=== PATIENT | female | born 1950 | race Caucasian/White ===

== ENCOUNTER 2020-06-02 13:30 | Observation (INO) | payer MEDICARE, SELFPAY ==
[2020-06-02] VITALS (13 sets, daily range): BP systolic 120–144; BP diastolic 59–98; PULSE 96–129; RESP 18–31; TEMP 36.3–36.9; O2SAT 95–97; BMI 39.8
--- NOTE | 2020-06-02 13:40 | DI.RAD.S_ITS ---
PROCEDURE: XR CHEST 1V INDICATIONS: SOb TECHNIQUE: One view of the chest was acquired. COMPARISON: None. FINDINGS: Surgical changes and devices: None. Lungs and pleura: Chronic emphysematous changes are noted with increased interstitial thickening more prominent on the right side. Linear scarring/atelectasis in right mid lung field is seen. No focal infiltrate. No pleural effusions or pneumothorax. Mediastinum: Mediastinal contours appear normal. Heart size is mildly enlarged. Bones and chest wall: No suspicious bony lesions. Overlying soft tissues appear unremarkable. IMPRESSION: Suggestion of chronic interstitial lung disease. No focal infiltrate, pleural effusion or pneumothorax. Dictated by: Stuart Duarte M.D. on 06/02/2020 at 13:57 Approved by: Stuart Duarte M.D. on 06/02/2020 at 13:58
[2020-06-02 13:53] LABS: Add Manual Diff / Slide Review NO; Basophils Absolute Auto 100 /uL (0-100); Basophils Percent Auto 0.7 % (0-2); Eosinophils Absolute Auto 200 /uL (0-450); Hematocrit 39.6 % (36-46); Hemoglobin 13.2 g/dL (12.0-16.0); Lymphocytes Absolute Auto 2000 /uL (1100-4500); Lymphocytes Percent Auto 23.5 % (25-40); Mean Corpuscular HGB Conc 33.2 % (30-36); Mean Corpuscular Hemoglobin 28.6 PG (26-34); Mean Corpuscular Volume 86.2 fL (80-100); Monocytes Absolute Auto 700 /uL (0-900); Monocytes Percent Auto 8.4 % (3-14); Neutrophils Absolute Auto 5700 /uL (1500-7000); Neutrophils Percent Auto 65.4 % (50-75); Platelet Count 232 X10^3/uL (150-400); Red Cell Distribution Width 14.6 % (11.6-14.8); White Blood Cell Count 8.7 X10^3/uL (4.5-11.0)
[2020-06-02 14:01] LABS: Prothrombin Time 11.2 SECONDS (10.1-12.7)
[2020-06-02 14:04] LABS: PTT Partial Thromboplastin Tim 31 SECONDS (26.4-36.2)
[2020-06-02 14:07] LABS: Alanine Aminotransferase 17 IU/L (<35); Albumin 4.1 g/dL (3.5-5.0); Albumin Globulin Ratio 1.4 (1.0-2.8); Alkaline Phosphatase 85 U/L (38-126); Aspartate Aminotransferase 24 IU/L (14-36); BUN Creatinine Ratio 19.5 (6-22); Bilirubin Total 0.8 mg/dL (0.2-1.3); Blood Urea Nitrogen 15 mg/dL (7-17); Carbon Dioxide 24 mmol/L (22-32); Chloride 107 mmol/L (98-107); Creatine Kinase 75 U/L (30-135); Estimated Glomerular Filt Rate > 60.0 mL/min (>60); Globulin 2.9 g/dL (1.7-4.1); Glucose 110 mg/dL (80-110); HEMOLYSIS < 15 (0-50); Lipase 85 U/L (23-300); Potassium 3.8 mmol/L (3.4-5.1); Sodium 138 mmol/L (137-145)
--- NOTE | 2020-06-02 14:09 | ED.GENADULT ---
HPI - General Adult General Chief complaint: Shortness of Breath/Dyspnea Stated complaint: allergies/eye symptoms/asthma x1 year Time Seen by Provider: 06/02/20 13:37 Source: patient Mode of arrival: Ambulatory Limitations: no limitations History of Present Illness HPI narrative: Patient is a 70-year-old female who was sent over from the walk-in clinic for evaluation of her presenting symptoms. Initially see stated that she went to the walk-in clinic for evaluation of crusting around her eyes that she is been having for the past year. While she was there she informed the staff that she was also waking up at night with shortness of breath and chest discomfort. According to their note she stated that has been worsening over the past couple days but according to the patient she states things started to get worse over the past month and has been worsening since then. She does have a diagnosis of asthma. She does use her inhalers at night which seems to help her symptoms however takes about an hour to recover from these events and then she goes back to sleep. She has also noticed a decrease in exercise tolerance. She does have lower extremity swelling. The lower extremity swelling is not necessarily new but it has been worsening over the past month. She is on Lasix which she states she takes on a daily basis and has been on this for the past 20 years. She has a history of high blood pressure. She is currently not having any chest pain. Related Data Home Medications Medication Instructions Recorded Confirmed Calcium/Vitamin D (#CITRACAL + D 1 tab PO #0 05/05/11 315 MG-200 IU) Conjugated Estrogens (PREMARIN) 1.25 mg PO QDAY #0 05/05/11 LORATADINE/P-EPHED 5/120 - 1 tab PO #0 05/05/11 (#CLARITIN-D) LOVASTATIN (MEVACOR) 20 mg PO QDAYPM #0 05/05/11 Loratadine (#CLARITIN HIVES RELIEF) 10 mg PO #0 05/05/11 Ranitidine Hydrochloride 150 mg PO QDAY #0 05/05/11 (RANITIDINE) VITAMIN A (#VITAMIN A NATURAL) 8,000 iu PO #0 05/05/11 VITAMIN D (Vitamin D3) 1,000 unit PO QDAY #0 05/05/11 ascorbic acid (vitamin C) 1,000 mg PO BID #0 05/05/11 furosemide 20 mg PO BIDD #0 05/05/11 ipratropium bromide [Atrovent HFA] #0 05/05/11 lisinopril 20 mg PO BID #0 05/05/11 lysine [L-Lysine] 500 mg PO #0 05/05/11 Allergies Allergy/AdvReac Type Severity Reaction Status Date / Time CODEINE Allergy Unknown Uncoded 06/27/17 12:15 ERYTHROMYCIN Allergy Unknown Uncoded 06/27/17 12:15 From VALIUM Allergy Unknown Uncoded 06/27/17 12:15 IODINE Allergy Unknown Uncoded 06/27/17 12:15 PENICILLIN Allergy Unknown Uncoded 06/27/17 12:15 SULFA Allergy Unknown Uncoded 06/27/17 12:15 UNKNOWN PAIN MED Allergy Unknown Uncoded 06/27/17 12:15 Review of Systems Constitutional Constitutional: Denies chills, Denies fever(s) and Denies headache(s) Eyes Comments: Crusting of eyes ENT Ears, Nose, Mouth, and Throat: Denies vertigo, Denies dizziness, Denies headache(s), Denies sinus pressure and Denies sore throat Cardiovascular Cardiovascular: Reports chest pain, Denies rapid heart rate, Denies irregular heart rhythm, Reports dyspnea, Reports dyspnea on exertion and Reports orthopnea Respiratory Respiratory: Denies cough, Reports dyspnea and Reports dyspnea on exertion Gastrointestinal Gastrointestinal: Denies abdominal pain, Denies nausea and Denies vomiting Genitourinary Genitourinary: Denies dysuria Genitourinary: Denies dysuria Musculoskeletal Musculoskeletal: Denies arthralgias and Denies myalgias Integumentary/Breasts Skin/Breast: Denies rash Neurologic Neurologic: Denies behavioral changes, Denies vertigo, Denies dizziness and Denies headache(s) Psychiatric Psychiatric: Denies behavioral changes Hematologic/Lymphatic On Anticoagulants: No Allergic/Immunologic Allergic/Immunologic: Denies urticaria Patient History Medical History Asthma Hypertension Lower extremity edema Social History marital status: lives independently: Yes Exam Initial Vital Signs Initial Vital Signs: Vital Signs Temperature 97.9 F 06/02/20 13:39 Pulse Rate 129 H 06/02/20 13:39 Respiratory Rate 24 06/02/20 13:39 Blood Pressure 141/73 H 06/02/20 13:39 Pulse Oximetry 96 06/02/20 13:39 Const General: cooperative, comfortable, well developed and well groomed Limitations: mental status not altered HENMD Head: normal to inspection and normocephalic Eyes General: appearance normal, both eyes and all related structures Resp Effort & Inspection: normal respiratory effort Auscultation: clear to auscultation bilaterally Cardio Rate: tachycardic Rhythm: abnormal rhythm GI Inspection: non-distended Palpation: soft Skin Lesions: no lesions Rashes: no rashes Neuro General: patient alert, patient awake and patient oriented x3 Cognition: normal cognition Speech: speech normal Gait: normal gait Extrem General: capillary refill normal and edema Psych Appearance: grossly normal and well kempt Scores GCS [place] coma scale eye opening: Spontaneous [place] coma scale verbal response: Orientated [place] coma scale motor response: Obey commands [place] coma scale total score: 15 Course Orders Ordered: ED Orders 06/02/20 13:40 XR chest 1V Stat 06/02/20 13:43 COVID19 -Nasal swab/Pre-Proc Stat Complete Blood Count AUTO DIFF Stat Comprehensive Metabolic Panel Stat Lipase Stat NT-proBNP (BNP-Adult 18+) Stat Partial Thromboplastin Time Stat Prothrombin Time INR Stat Troponin & CK Cardiac Panel Stat 06/02/20 13:49 EKG-12 Lead Stat Discontinued Medications Furosemide (Furosemide 100 Mg/10 Ml Vial) 60 mg IV NOW ONE Stop: 06/02/20 14:22 Metoprolol Succinate (Metoprolol Er 25 Mg Tablet) 25 mg PO NOW ONE Stop: 06/02/20 14:29 Vital Signs Vital signs: Vital Signs - 8 hr 06/02/20 13:39 06/02/20 14:13 Temperature 97.9 F Pulse Rate 129 H 97 H Respiratory Rate 24 Blood Pressure 141/73 H 135/59 L Pulse Oximetry 96 95 Medical Decision Making Lab Data Result diagrams: 06/02/20 13:43 06/02/20 13:43 Labs: Lab Results 06/02/20 06/02/20 06/02/20 Range/Units 13:43 13:43 13:43 WBC 8.7 (4.5-11.0) X10^3/uL RBC 4.60 (4.0-5.2) X10^6/uL Hgb 13.2 (12.0-16.0) g/dL Hct 39.6 (36-46) % MCV 86.2 (80-100) fL MCH 28.6 (26-34) PG MCHC 33.2 (30-36) % RDW 14.6 (11.6-14.8) % Plt Count 232 (150-400) X10^3/uL Neut % (Auto) 65.4 (50-75) % Lymph % (Auto) 23.5 L (25-40) % [place] % (Auto) 8.4 (3-14) % Eos % (Auto) 2.0 (2-4) % Baso % (Auto) 0.7 (0-2) % Neut # (Auto) 5700 (0753-0734) /uL Lymph # (Auto) 2000 (7457-1757) /uL [place] # (Auto) 700 (0-900) /uL Eos # (Auto) 200 (0-450) /uL Baso # (Auto) 100 (0-100) /uL PT 11.2 (10.1-12.7) SECONDS INR 1.0 (0.9-1.3) APTT 31 (26.4-36.2) SECONDS Sodium 138 (137-145) mmol/L Potassium 3.8 (3.4-5.1) mmol/L Chloride 107 (98-107) mmol/L Carbon Dioxide 24 (22-32) mmol/L BUN 15 (7-17) mg/dL Creatinine 0.77 (0.52-1.04) mg/dL Estimated GFR > 60.0 (>60) mL/min BUN/Creatinine Ratio 19.5 (6-22) Glucose 110 (80-110) mg/dL Calcium 9.0 (8.4-10.2) mg/dL Total Bilirubin 0.8 (0.2-1.3) mg/dL AST 24 (14-36) IU/L ALT 17 (<35) IU/L Alkaline Phosphatase 85 (38-126) U/L Total Creatine Kinase (30-135) U/L CK-MB (CK-2) CK-MB (CK-2) Rel Index Troponin I (0.01-0.034) ng/mL NT-Pro-B Natriuret Pep 850 H (<125) pg/mL Total Protein 7.0 (6.3-8.2) g/dL Albumin 4.1 (3.5-5.0) g/dL Globulin 2.9 (1.7-4.1) g/dL Albumin/Globulin Ratio 1.4 (1.0-2.8) Lipase 85 (23-300) U/L SARS-CoV-2 (PCR) (Negative) 06/02/20 06/02/20 Range/Units 13:43 13:43 WBC (4.5-11.0) X10^3/uL RBC (4.0-5.2) X10^6/uL Hgb (12.0-16.0) g/dL Hct (36-46) % MCV (80-100) fL MCH (26-34) PG MCHC (30-36) % RDW (11.6-14.8) % Plt Count (150-400) X10^3/uL Neut % (Auto) (50-75) % Lymph % (Auto) (25-40) % [place] % (Auto) (3-14) % Eos % (Auto) (2-4) % Baso % (Auto) (0-2) % Neut # (Auto) (6936-4173) /uL Lymph # (Auto) (2134-7215) /uL [place] # (Auto) (0-900) /uL Eos # (Auto) (0-450) /uL Baso # (Auto) (0-100) /uL PT (10.1-12.7) SECONDS INR (0.9-1.3) APTT (26.4-36.2) SECONDS Sodium (137-145) mmol/L Potassium (3.4-5.1) mmol/L Chloride (98-107) mmol/L Carbon Dioxide (22-32) mmol/L BUN (7-17) mg/dL Creatinine (0.52-1.04) mg/dL Estimated GFR (>60) mL/min BUN/Creatinine Ratio (6-22) Glucose (80-110) mg/dL Calcium (8.4-10.2) mg/dL Total Bilirubin (0.2-1.3) mg/dL AST (14-36) IU/L ALT (<35) IU/L Alkaline Phosphatase (38-126) U/L Total Creatine Kinase 75 (30-135) U/L CK-MB (CK-2) TNP CK-MB (CK-2) Rel Index TNP Troponin I < 0.012 (0.01-0.034) ng/mL NT-Pro-B Natriuret Pep (<125) pg/mL Total Protein (6.3-8.2) g/dL Albumin (3.5-5.0) g/dL Globulin (1.7-4.1) g/dL Albumin/Globulin Ratio (1.0-2.8) Lipase (23-300) U/L SARS-CoV-2 (PCR) Negative (Negative) Imaging Data Chest x-ray: Radiologist's Impression: [address] [id number] ReportSigned Patient: Lilia Barreto FMR#: [id number]: 9Acct:[id number]/Sex: 70 / FDate of Service: 06/02/20Loc: EDAccession Number: [id number] Procedure: XR chest 1V Ordering Provider: Matt Gilliland D.O. PROCEDURE: XR CHEST 1V INDICATIONS: SOb TECHNIQUE: One view of the chest was acquired. COMPARISON: None. FINDINGS: Surgical changes and devices: None. Lungs and pleura: Chronic emphysematous changes are noted with increased interstitial thickening more prominent on the right side. Linear scarring/atelectasis in right mid lung field is seen. No focal infiltrate. No pleural effusions or pneumothorax. Mediastinum: Mediastinal contours appear normal. Heart size is mildly enlarged. Bones and chest wall: No suspicious bony lesions. Overlying soft tissues appear unremarkable. IMPRESSION: Suggestion of chronic interstitial lung disease. No focal infiltrate, pleural effusion or pneumothorax. Dictated by: Stuart Duarte M.D. on 06/02/2020 at 13:57 Approved by: Stuart Duarte M.D. on 06/02/2020 at 13:58 ECG Data Attestation: I personally reviewed and interpreted this ECG as follows: Prior ECG tracings: not available for review Interpretation: Atrial fibrillation Ventricular rate 104 Normal axis Normal QRS Normal QTC No ST T wave changes MDM Narrative Medical decision making narrative: Patient does not have a history of atrial fibrillation yet she is in atrial fibrillation today. She is also having lower extremity edema which has been worsening over the past couple weeks. She is on 40 mg of Lasix at night. She has been having dyspnea on exertion and waking up at night gasping for air and also having some discomfort with that. Her chest x-ray shows potential interstitial pulmonary disease. No indication of pneumonia. Her heart rate has been anywhere from the 80s to 120s. Her blood pressure has been relatively unremarkable. She states she did not take her blood pressure medicines this morning. Plan will be is to give her a dose of IV Lasix here. Will give her oral metoprolol to try to help better rate control. I do feel that admission to the hospital for further evaluation to include an echocardiogram and further diuresis is needed given the fact that she does not have a primary provider. Discussed the case with Dr. Melton who will admit for further evaluation treatment. I did discuss this with her as well. She expressed understanding and agreement. Discharge Plan Departure Patient Disposition: Admitted as Observation Clinical Impression: Atrial fibrillation, Bilateral edema of lower extremity, Dyspnea on exertion
[2020-06-02 14:10] LABS: COVID19 -Nasal RAPID Negative (Negative)
[2020-06-02 14:16] LABS: NT-proBNP (BNP-Adult 18+) 850 pg/mL (<125)
[2020-06-02 14:19] LABS: Troponin I < 0.012 ng/mL (0.01-0.034)
--- NOTE | 2020-06-02 14:42 | DI.ECHO.S_ITS ---
[facility] +---------+ Hospital +---------+ : : [address] [place] : : : : [id number] : : : : Phone: [phone]+ Echocardiogram Report + + :Name: JANAY OCONNOR Study Date: 06/03/2020 Height: 60 in : :[facility] ReadingLocation: Weight: 204 lb : : Gender: Female BSA: 1.9 m2 : :: 1950 Age: 70 yrs BP: 120/96 mmHg: :Reason For Study: DYSPNEA ON EXERTION, LE EDEMA, NEW AFIB : :Ordering Physician: SYDNEE, : :IJEOMA MARTINEZ Performed By: Mary Lou Gomez : :Referring: IJEOMA RANDHAWA : + + Interpretation Summary The ejection fraction is estimated to be 50-55%. There is moderate mitral regurgitation. There is mild to moderate tricuspid regurgitation. The right ventricular systolic pressure is estimated to be at least 29 mmHg based on an estimated right atrial pressure of 8 mm Hg. Procedure: A two-dimensional transthoracic echocardiogram with color flow and Doppler was performed. The study quality was technically adequate. There is no prior echocardiogram noted for this patient. The patient was in atrial fibrillation with heart rates between 80-114 bpm during the exam. Left Ventricle: The left ventricle is normal in size and wall thickness. The ejection fraction is estimated to be 50-55%. There are no obvious focal wall motion abnormalities noted but poor endocardial definition reduces the sensitivity for the detection of such. Diastolic function could not be accurately assessed due to atrial fibrillation. Right Ventricle: The right ventricle is normal in size, thickness and function. Right ventricular systolic function is at the lower limits of normal. Atria: The left atrium is mildly dilated. Right atrial size is normal. There is no Doppler evidence for an interatrial shunt. Mitral Valve: The mitral valve leaflets appear mildly thickened, but open well. There is moderate mitral regurgitation. Aortic Valve: The aortic valve opens well. The aortic valve is trileaflet. There is no aortic valve stenosis. No aortic regurgitation is present. Tricuspid Valve: The tricuspid valve is normal in structure and function. There is mild to moderate tricuspid regurgitation. The right ventricular systolic pressure is estimated to be at least 29 mmHg based on an estimated right atrial pressure of 8 mm Hg. Pulmonic Valve: The pulmonic valve leaflets are thin and pliable; valve motion is normal. There is no pulmonic valvular regurgitation. Great Vessels: The aortic root is normal size. The dimensions of the ascending aorta are normal. The IVC is dilated (diameter is greater than 2.1 cm) yet it collapses greater than 50% with a sniff. This suggests a right atrial pressure of 8 mm Hg. Pericardium/ Pleura There is no pericardial effusion. There is no pleural effusion. MMode/2D Measurements & Calculations LVIDd: 4.4 cm LVOT diam: 2.0 cm LVIDs: 2.9 cm Ao root diam: 3.4 cm FS: 33.9 % asc Aorta Diam: 3.0 cm EPSS: 0.71 cm Ao Arch Diam (Prox Trans): 2.4 cm IVSd: 0.97 cm LVPWd: 1.0 cm LV oro. diameter/BSA (cm/m^2): 2.4 LV sys. diameter/BSA (cm/m^2): 1.6 LA A2 area: 24.8 cm2 RA long axis: 5.5 cm LA A4 area: 21.4 cm2 RA area: 20.1 cm2 LA length (vol): 5.9 cm RA vol: 61.9 ml LA vol: 76.5 ml RA : 32.9 ml/m2 LA vol index: 40.6 ml/m2 IVC diam: 2.2 cm RVD1 (basal): 3.1 cm TAPSE: 1.7 cm Doppler Measurements & Calculations Ao V2 max: 102.0 cm/sec LVOT Max Regan: 77.8 cm/sec Ao V2 mean: 73.2 cm/sec LV V1 max P.4 mmHg Ao max P.2 mmHg LV V1 VTI: 14.2 cm Ao mean P.4 mmHg BERE(I,D): 2.2 cm2 Ao V2 VTI: 21.2 cm BERE(V,D): 2.5 cm2 sev ratio: 0.67 BERE indexed to BSA (cm^2/m^2): 1.2 MV E max regan: 101.9 cm/sec TR max regan: 229.6 cm/sec MV A max regan: 1.1 cm/sec TR max P.1 mmHg MV E/A: 90.0 PA pr(Accel): 41.3 mmHg Med Peak E' Regan: 7.6 cm/sec E/E' med: 13.3 Lat Peak E' Regan: 10.5 cm/sec E/E' lat: 9.7 E/e' average: 11.5 MV dec time: 0.22 sec MR ERO: 0.18 cm2 MR PISA: 2.3 cm2 SV(LVOT): 46.0 ml MR flow rate: 83.6 cm3/sec MR PISA radius: 0.60 cm Reading Physician:10:45 AM
[2020-06-02] MEDS: METOPROLOL ER 25 MG TABLET PO ×2 (14:48→21:12)
[2020-06-02] MEDS: FUROSEMIDE 100 MG/10 ML VIAL 60 MG IV (14:50)
[2020-06-02 16:08] LABS: COVID19 - ADMIT (NP swab/PCR) Negative (Negative)
--- NOTE | 2020-06-02 16:42 | PM.HP.1 ---
History of Present Illness History of Present Illness Date Patient Seen: 06/02/20 Time Patient Seen: 16:42 Chief complaint: allergies/eye symptoms/asthma x1 year Narrative: Lilia Ochoa is a 70-year-old female with reported past medical history of asthma and hypertension, but no records are currently available for review, who presented with dyspnea on exertion worsening over the past months. Patient complains of 3-4 pillow orthopnea with paroxysmal nocturnal dyspnea, dyspnea on exertion where she is only able to walk about 100 ft before getting short of breath, with subsequent chest pressure that is nonradiating but severe and alleviated after about 2-3 minutes of rest. She denies palpitations or diaphoresis during these episodes. She will usually take a nebulizer at home, more so when this happens at night, and she usually needs to sit upright for about an hour before she is better and she then returns back to sleep. She denies any abdominal pain, nausea, vomiting. She denies any headaches or vision changes, focal weakness, numbness, or tingling. She does have chronic lower extremity edema for which she takes Lasix. She denies fever or sputum production, although she does endorse a chronic cough. She also takes losartan for high blood pressure. She reports that she had a prior echocardiogram and stress test 2 years ago for similar symptoms which did ultimately improve somewhat and her physicians told her that her heart looked okay and needed no further interventions. In the emergency room, she was noted to be in rapid AFib with a rate of 129 on presentation. The remainder of her vital signs were unremarkable, and she was mildly hypertensive. Initial laboratory evaluation showed an unremarkable CBC, normal coagulation studies, unremarkable chemistry panel. Troponin was negative. ProBNP was slightly elevated at 850. COVID-19 testing was negative. Chest x-ray showed mild increased interstitial markings slightly asymmetric with right greater than left. EKG showed atrial fib/flutter with a rate of 103. Patient was given oral metoprolol and 60 mg of IV Lasix for presumed heart failure and admitted to Medicine for further evaluation. Patient History Medical History (Updated 06/02/20 @ 14:34 by Matt Glililand DO) Asthma Hypertension Lower extremity edema Surgical History (Updated 06/02/20 @ 16:50 by Erik Melton DO) H/O: hysterectomy Family & Social History Family History (Updated 06/02/20 @ 16:51 by Erik Melton DO) Sister Congestive heart failure Mother Congestive heart failure Social History: household members spouse Prior Living Arrangements House lives independently Yes Safety & Behavioral: Feels Safe in Current Yes Environment Been Physically Hurt or No Threatened By a Person Suicidal Ideation Description None Suicide Plan Description No Plan Tobacco & Substance use: Tobacco type cigarettes Smoking Status Former smoker Smoking packs per day 2 alcohol intake former alcohol intake frequency 3 or more drinks per day Substance Use Type does not use Meds Home Medications and Allergies Home Medications Medication Instructions Recorded Confirmed Type Atrovent HFA 2 puff INHALATION PRN PRN #0 05/05/11 06/02/20 History Conjugated Estrogens (PREMARIN) 1.25 mg PO QDAY #0 05/05/11 06/02/20 History VITAMIN D (Vitamin D3) 1,000 unit PO QDAY #0 05/05/11 06/02/20 History furosemide 40 mg PO BEDTIME #0 05/05/11 06/02/20 History losartan 100 mg PO DAILY 06/02/20 06/02/20 History Allergies Allergy/AdvReac Type Severity Reaction Status Date / Time CODEINE Allergy Unknown Uncoded 06/27/17 12:15 ERYTHROMYCIN Allergy Unknown Uncoded 06/27/17 12:15 From VALIUM Allergy Unknown Uncoded 06/27/17 12:15 IODINE Allergy Unknown Uncoded 06/27/17 12:15 PENICILLIN Allergy Unknown Uncoded 06/27/17 12:15 SULFA Allergy Unknown Uncoded 06/27/17 12:15 UNKNOWN PAIN MED Allergy Unknown Uncoded 06/27/17 12:15 Review of Systems Review of Systems Narrative: All other systems reviewed with the patient and are negative unless otherwise stated. Exam Vital Signs (past 8 hours): - 06/02/20 13:39 06/02/20 14:13 06/02/20 14:30 Temperature 97.9 F Pulse Rate 129 H 97 H 108 H Respiratory Rate 24 23 Blood Pressure 141/73 H 135/59 L 144/98 H Pulse Oximetry 96 95 95 06/02/20 14:48 06/02/20 14:49 06/02/20 14:58 Temperature Pulse Rate 106 H 116 H 99 H Respiratory Rate 19 31 H Blood Pressure 135/80 135/80 Pulse Oximetry 97 95 06/02/20 15:11 06/02/20 16:30 Temperature 97.3 F L Pulse Rate 108 H Respiratory Rate 18 Blood Pressure 139/70 137/68 Pulse Oximetry 96 Oxygen Delivery Method Room Air Narrative Exam Narrative: GENERAL APPEARANCE: Well developed, well nourished, elderly female in no acute distress. SKIN: Inspection of the skin reveals no rashes, ulcerations or petechiae. HEENT: Normocephalic atraumatic, extraocular muscles are intact, oropharynx is clear and mucous membranes are moist, neck is supple without adenopathy NECK: Supple and symmetric. There was no thyroid enlargement, and no tenderness. No JVD. CHEST: Normal AP diameter and normal contour without any kyphoscoliosis. LUNGS: Mild bibasilar rhonchi, right greater than left, no wheezing. CARDIOVASCULAR: Mildly tachycardic, irregularly irregular rhythm without murmurs, rubs, or gallops Peripheral pulses were 2+ and symmetric. ABDOMEN: Soft and nontender with normal bowel sounds. No ascites was noted. MUSCULOSKELETAL: There was no tenderness or effusions noted. Muscle strength and tone were normal. EXTREMITIES: No cyanosis, clubbing. Bilateral LE 1+ pitting edema. NEUROLOGIC: Alert and oriented x 3. Normal affect. Gait was normal. Strength is +5/5 in the Upper Extremities and Lower Extremities Bilaterally. Sensation to touch was normal. Objective ECG Impression: Atrial fibrillation/flutter with rapid ventricular response, rate 103 Rightward axis Imaging Chest x-ray: My impression: Increased interstitial Markings right slightly greater than left. No focal infiltrates, slightly increased lung volumes without flattening of the diaphragm. Radiologist's impression: PROCEDURE: XR CHEST 1V INDICATIONS: SOb TECHNIQUE: One view of the chest was acquired. COMPARISON: None. FINDINGS: Surgical changes and devices: None. Lungs and pleura: Chronic emphysematous changes are noted with increased interstitial thickening more prominent on the right side. Linear scarring/atelectasis in right mid lung field is seen. No focal infiltrate. No pleural effusions or pneumothorax. Mediastinum: Mediastinal contours appear normal. Heart size is mildly enlarged. Bones and chest wall: No suspicious bony lesions. Overlying soft tissues appear unremarkable. IMPRESSION: Suggestion of chronic interstitial lung disease. No focal infiltrate, pleural effusion or pneumothorax. Labs Result Diagrams: 06/02/20 13:43 06/02/20 13:43 Labs: Laboratory Results - last 24 hr 06/02/20 06/02/20 06/02/20 13:43 13:43 13:43 WBC 8.7 RBC 4.60 Hgb 13.2 Hct 39.6 MCV 86.2 MCH 28.6 MCHC 33.2 RDW 14.6 Plt Count 232 Neut % (Auto) 65.4 Lymph % (Auto) 23.5 L Frederick % (Auto) 8.4 Eos % (Auto) 2.0 Baso % (Auto) 0.7 Neut # (Auto) 5700 Lymph # (Auto) 2000 Frederick # (Auto) 700 Eos # (Auto) 200 Baso # (Auto) 100 PT 11.2 INR 1.0 APTT 31 Sodium 138 Potassium 3.8 Chloride 107 Carbon Dioxide 24 BUN 15 Creatinine 0.77 Estimated GFR > 60.0 BUN/Creatinine Ratio 19.5 Glucose 110 Calcium 9.0 Total Bilirubin 0.8 AST 24 ALT 17 Alkaline Phosphatase 85 Total Creatine Kinase CK-MB (CK-2) CK-MB (CK-2) Rel Index Troponin I NT-Pro-B Natriuret Pep 850 H Total Protein 7.0 Albumin 4.1 Globulin 2.9 Albumin/Globulin Ratio 1.4 Lipase 85 SARS-CoV-2 (PCR) 06/02/20 06/02/20 06/02/20 13:43 13:43 15:10 WBC RBC Hgb Hct MCV MCH MCHC RDW Plt Count Neut % (Auto) Lymph % (Auto) Frederick % (Auto) Eos % (Auto) Baso % (Auto) Neut # (Auto) Lymph # (Auto) Frederick # (Auto) Eos # (Auto) Baso # (Auto) PT INR APTT Sodium Potassium Chloride Carbon Dioxide BUN Creatinine Estimated GFR BUN/Creatinine Ratio Glucose Calcium Total Bilirubin AST ALT Alkaline Phosphatase Total Creatine Kinase 75 CK-MB (CK-2) TNP CK-MB (CK-2) Rel Index TNP Troponin I < 0.012 NT-Pro-B Natriuret Pep Total Protein Albumin Globulin Albumin/Globulin Ratio Lipase SARS-CoV-2 (PCR) Negative Negative Assessment & Plan Assessment & Plan narrative: Lilia Ochoa is a 70-year-old female with reported past medical history of asthma and hypertension, but no records are currently available for review, who presented with dyspnea on exertion worsening over the past month. She is admitted with a new diagnosis of atrial fibrillation and possible heart failure or primary pulmonary disease. 1. Dyspnea on exertion, acute, present on admission - patient presents with dyspnea on exertion, orthopnea, and PND for the past month. Symptoms consistent with cardiac etiology, she also complains of exertional chest pressure symptoms. - differential includes but not limited to symptomatic atrial fibrillation, angina, acute heart failure (possibly tachyarrythmia induced), and interstitial pulmonary disease. Infectious etiologies seem less likely at this time. - will start with echocardiogram, if no overt heart failure and symptoms not improved with controlled atrial fibrillation, check High resolution CT to evaluate for ILD. Consider cardiac stress testing however patient reports prior stress test 2 years ago was unremarkable, will work to try and obtain reports. - continue furosemide 60 mg IV BID, first dose in the ER. Continue metoprolol 25 mg PO BID. - TTE ordered - risk stratification labs with A1c, TSH, lipid panel. - COVID 19 negative. 2. Atrial fibrillation with RVR, present on admission, unknown type new diagnosis. - TTE as noted above - continue metoprolol 25 mg BID PO, increase as tolerated. Will reduce home losartan to 25 mg from 100 mg to allow for possible additional rate control if neede - CHADS-VASC of 3 currently pending TTE. Will start apixaban 5 mg PO BID. 3. HTN, chronic - will reduce home losartan to 25 mg from 100 mg as noted above to allow for additional rate control of afib. 4. Asthma, mild intermittent, chronic - patient states history of asthma, although possible ILD as discussed above. Will consult Respiratory therapy, albuterol nebs prn. Code: Full as discussed with the patient, surrogate decision maker is her spouse. ] DVT: on apixaban as noted above Dispo: Admitted under observation status. Scores CHADS-VASc Congestive heart failure: no Hypertension: yes Age 75 years or older: no Diabetes mellitus: no Stroke, TIA, or TE: no Vascular disease: no Age 65 to 74 years: yes Sex category (female): Female CHADS-VASc Score: 3 Quality VTE Deep Vein Thrombosis/Pulmonary Embolism Present on Admission: No MIPS - Admit Advanced Care Plan / Current Medications Measures: #47 ? Advanced Care Plan Clinician documentation instruction: document at admission. [x] I confirmed that the patient's Advance Care Plan is present, code status is documented, or surrogate decision maker is listed in the patient?s medical record. [SATISFIES MIPS PERFORMANCE] If Yes, Stop Here [] The patient?s Advance Care plan is not present because: (select) [MIPS PERFORMANCE EXCEPTION/EXCLUSION] [] I confirmed today that the patient does not wish or was not able to name a surrogate decision maker or provide an Advance Care Plan. [] Hospice care is currently being provided or has been provided this calendar year [] I did NOT confirm today the presence of an Advance Care Plan or surrogate decision maker documented within the patient's medical record. [DOES NOT SATISFY MIPS PERFORMANCE] #130 - Documentation of Current Medications in the Medical Record Clinician documentation instruction: use macro the first time you see a patient. [x] I have utilized all available immediate resources to obtain, update, or review the patient?s current medications. [SATISFIES MIPS PERFORMANCE] If Yes, Stop Here [] The patient is not eligible for medication reconciliation; the patient is in an emergent medical situation where delaying treatment would jeopardize the patient?s health. [MIPS PERFORMANCE EXCEPTION/EXCLUSION] [] I did NOT confirm, update or review the patient's current list of medications today. [DOES NOT SATISFY MIPS PERFORMANCE] MIPS - CL Central Venous Catheter Placement Measure: #76 ? Prevention of Central Venous Catheter (CVC) ? Related Bloodstream Infection Clinician documentation instruction: use macro every time you place a central line. [] All elements of Maximal Sterile Barrier Technique, including hand hygiene, skin prep, and sterile ultrasound technique (if used) were followed. [SATISFIES MIPS PERFORMANCE] If Yes, Stop Here [] If ?No?, the medical reason all elements were NOT used for medical reason [] (ex. emergent condition). [] Maximal Sterile Barrier Technique was not followed, no reason provided [DOES NOT SATISFY MIPS PERFORMANCE] MIPS - DC Heart Failure Measures: #5 - Heart Failure (HF): Angiotensin-Converting Enzyme (PAUL) Inhibitor or Angiotensin Receptor Brittney (ARB) Therapy for Left Ventricular Systolic Dysfunction (LVSD) and #8 - Heart Failure (HF): Beta-Brittney Therapy for Left Ventricular Systolic Dysfunction (LVSD) Clinician documentation instruction: use macro at every CHF discharge. [] The patient has current or prior documentation of left ventricular ejection fraction (LVEF) less than 40%, or moderate or severely depressed left ventricular systolic function. Answer both: [SATISFIES MIPS PERFORMANCE] [] The patient was prescribed or already taking an Angiotensin-Converting Enzyme (PAUL) Inhibitor, or Angiotensin Receptor Brittney (ARB). [] The patient was prescribed or already taking a beta-brittney. If Yes to Both, Stop Here [] Patient not prescribed/taking: [MIPS PERFORMANCE EXCEPTION/EXCLUSION] [] PAUL or ARB for medical/patient/system reason(s) including [] (ex. allergy, intolerance, contraindication) [] Beta-brittney for medical/patient/system reason(s) including [] (ex. allergy, intolerance, contraindication) [] Patient not prescribed/taking: [DOES NOT SATISFY MIPS PERFORMANCE] [] PAUL or ARB, no reason given [] Beta-brittney, no reason given
[2020-06-02 17:23] LABS: Magnesium 2.1 mg/dL (1.6-2.3)
[2020-06-02] MEDS: ACETAMINOPHEN 325 MG TABLET 650 MG PO (21:12)
[2020-06-02] MEDS: APIXABAN 5 MG TABLET PO (21:12)
--- NOTE | 2020-06-02 21:17 | PC.NURSE ---
cramps pt has had good urinary output post IV lasix administered in the ED. is now stating leg cramps. water provided and encouraged. pt drank clear ensure and V8 juice to aid with electrolyte replenishment and SCDs placed to massage legs. notified of the same.
[2020-06-02 22:02] LABS: BUN Creatinine Ratio 19.5 (6-22); Blood Urea Nitrogen 17 mg/dL (7-17); Carbon Dioxide 34 mmol/L (22-32); Chloride 104 mmol/L (98-107); Estimated Glomerular Filt Rate > 60.0 mL/min (>60); Glucose 91 mg/dL (80-110); HEMOLYSIS < 15 (0-50); Potassium 4.6 mmol/L (3.4-5.1); Sodium 138 mmol/L (137-145)
[2020-06-02] MEDS: PANTOPRAZOLE 20 MG TABLET PO (22:49)
[2020-06-03] VITALS (11 sets, daily range): BP systolic 107–134; BP diastolic 67–89; PULSE 71–105; RESP 18–19; TEMP 36.2–37.2; O2SAT 93–95
[2020-06-03 06:03] LABS: Add Manual Diff / Slide Review NO; Basophils Absolute Auto 100 /uL (0-100); Basophils Percent Auto 0.7 % (0-2); Eosinophils Absolute Auto 200 /uL (0-450); Eosinophils Percent Auto 2.7 % (2-4); Hematocrit 37.5 % (36-46); Hemoglobin 12.5 g/dL (12.0-16.0); Lymphocytes Absolute Auto 2500 /uL (1100-4500); Lymphocytes Percent Auto 30.4 % (25-40); Mean Corpuscular HGB Conc 33.2 % (30-36); Mean Corpuscular Hemoglobin 28.7 PG (26-34); Mean Corpuscular Volume 86.4 fL (80-100); Monocytes Absolute Auto 700 /uL (0-900); Monocytes Percent Auto 8.1 % (3-14); Neutrophils Absolute Auto 4700 /uL (1500-7000); Neutrophils Percent Auto 58.1 % (50-75); Platelet Count 219 X10^3/uL (150-400); Red Blood Cell Count 4.34 X10^6/uL (4.0-5.2); Red Cell Distribution Width 14.4 % (11.6-14.8); White Blood Cell Count 8.2 X10^3/uL (4.5-11.0)
[2020-06-03 06:06] LABS: Alanine Aminotransferase 14 IU/L (<35); Albumin 3.7 g/dL (3.5-5.0); Albumin Globulin Ratio 1.3 (1.0-2.8); Alkaline Phosphatase 78 U/L (38-126); Aspartate Aminotransferase 19 IU/L (14-36); BUN Creatinine Ratio 21.8 (6-22); Bilirubin Total 0.8 mg/dL (0.2-1.3); Bilirubin Unconjugated 0.8 mg/dL (0.0-1.1); Blood Urea Nitrogen 17 mg/dL (7-17); Calcium 8.9 mg/dL (8.4-10.2); Carbon Dioxide 29 mmol/L (22-32); Chloride 103 mmol/L (98-107); Cholesterol 227 mg/dL (140-199); Estimated Glomerular Filt Rate > 60.0 mL/min (>60); Globulin 2.8 g/dL (1.7-4.1); Glucose 106 mg/dL (80-110); HDL Cholesterol 77 mg/dL (40-60); HEMOLYSIS < 15 (0-50); LDL Cholesterol Calculated 133 mg/dL (<100); Sodium 137 mmol/L (137-145); Total Protein 6.5 g/dL (6.3-8.2); Triglycerides 86 mg/dL (35-150)
[2020-06-03 06:13] LABS: Hemoglobin A1C% w Est Avg Glu 5.3 % (4.0-6.0)
[2020-06-03 06:32] LABS: TSH w/ Reflex to FT4 4.23 uIU/mL (0.47-4.68)
[2020-06-03] MEDS: APIXABAN 5 MG TABLET PO (08:23)
[2020-06-03] MEDS: LOSARTAN 25 MG TABLET PO (08:23)
[2020-06-03] MEDS: METOPROLOL ER 25 MG TABLET PO ×2 (08:24→09:13)
[2020-06-03] MEDS: FUROSEMIDE 20 MG TABLET 80 MG PO (09:13)
[2020-06-03] MEDS: ONDANSETRON 4 MG/2 ML INJ IV (11:11)
[2020-06-03] MEDS: dilTIAZem SR 60 MG PO (11:11)
--- NOTE | 2020-06-03 11:43 | CM.DANOTE ---
DCP: Case received, EMR reviewed and met with patient. Introduced self and role. Was able to obtain information from patient regarding her baseline activity status prior to hospitalization, as well as her current living situation. DCP assessment completed with information currently available. Patient is a 70 year old female who admitted yesterday afternoon to the care of the hospitalist team. PCP: None, but provider information given to patient. Payer: confirmed: [employer] Medicare. Patient came to the hospital via private vehicle secondary to having increased shortness of breath, orthopnea, as well as dyspnea upon any minimal exertion. Patient was diagnosed with rapid A-fib, as well as fluid overload. She is here for diuresis, on IV Lasix, and she will be getting echo today. She also has interstitual lung disease. Met with patient in her room. She is pleasant, alert and oriented. She resides in [place] with her , Abdi Newton. She is independent at baseline. Patient has no current provider. She indicated that she used to see a provider in [place], was an business services vice president, but recently retired. Discussed providers in this area, as patient stated, she is willing to come to [place] to get established with a local provider. Gave her phone number for [facility], and provided her with a print out on the providers, and which ones are accepting new patients. She appreciated the information. She will need to get established in a timely manner, for she will need some outpatient follow up. P: DCP to continue to follow. Patient should be able to go home when she is medically stable. She was walking in the hallways independently with no devices. Ivy Andrews RN/[employer] Apprentice
--- NOTE | 2020-06-03 13:35 | P.DS_ITS ---
History of Present Illness History of Present Illness Date Patient Seen: 06/03/20 Time Patient Seen: 13:35 Chief complaint: allergies/eye symptoms/asthma x1 year Narrative: Lilia Ochoa is a 70-year-old female with reported past medical history of asthma and hypertension, but no records are currently available for review, who presented with dyspnea on exertion worsening over the past months. Patient complains of 3-4 pillow orthopnea with paroxysmal noctu rnal dyspnea, dyspnea on exertion where she is only able to walk about 100 ft before getting short of breath, with subsequent chest pressure that is nonradiating but severe and alleviated after about 2-3 minutes of rest. She denies palpitations or diaphoresis during these episodes. She will usually take a nebulizer at home, more so when this happens at night, and she usually needs to sit upright for about an hour before she is better and she then returns back to sleep. She denies any abdominal pain, nausea, vomiting. She denies any headaches or vision changes, focal weakness, numbness, or tingling. She does have chronic lower extremity edema for which she takes Lasix. She denies fever or sputum production, although she does endorse a chronic cough. She also takes losartan for high blood pressure. She reports that she had a prior echocardiogram and stress test 2 years ago for similar symptoms which did ultimately improve somewhat and her physicians told her that her heart looked okay and needed no further interventions. In the emergency room, she was noted to be in rapid AFib with a rate of 129 on presentation. The remainder of her vital signs were unremarkable, and she was mildly hypertensive. Initial laboratory evaluation showed an unremarkable CBC, normal coagulation studies, unremarkable chemistry panel. Troponin was negative. ProBNP was slightly elevated at 850. COVID-19 testing was negative. Chest x-ray showed mild increased interstitial markings slightly asymmetric with right greater than left. EKG showed atrial fib/flutter with a rate of 103. Patient was given oral metoprolol and 60 mg of IV Lasix for presumed heart failure and admitted to Medicine for further evaluation. Discharge Providers Provider Date of admission: 06/02/20 15:27 Discharge Date: 06/03/20 Primary care physician: Doctor Domonique MD Consults: 06/02/20 17:16 Consult to Respiratory Therapy Evaluate & Treat Comment: Physician Instructions: Evaluate and treat Discharge provider: Erik Melton DO Summary Hospital Course Discharge Diagnosis: please see hospital course by problem list noted below. Hospital Course: Lilia Ochoa is a 70-year-old female with reported past medical history of asthma and hypertension, but no records are currently available for review, who presented with dyspnea on exertion worsening over the past month. She was admitted with a new diagnosis of atrial fibrillation and possible heart failure. She improved with diuresis and medications for rate control. Her rate was not completely optimized prior to discharge, however patient's symptoms had improved and her HR was generally between 90-100 and she requested discharge home. She was recommended to establish care with a PCP as soon as possible for additional management as an outpatient. 1. acute Heart failure with preserved ejection fraction or diastolic disease, present on admission, improved - patient presented with dyspnea on exertion, orthopnea, and PND for the past month. Symptoms consistent with cardiac etiology, she also complains of exertional chest pressure symptoms. These all improved with rate control and diuresis. - patient reported negative stress testing two years prior. Given adequate control of symptoms with diuresis and rate control appears likely her presentation was due to acute heart failure from atrial fibrillation. - patient complained of cramps with 60 mg of IV lasix with adequate urine output. Changed to oral lasix at 80 mg. Recomend discharge on 20 mg daily upon discharge as she appeared close to euvolemic with improved symptoms on discharge. - TTE showed normal EF and no significant valvular disease, unable to assess diastolic function due to atrial fibrillation 2. Atrial fibrillation with RVR, present on admission, unknown type new diagnosis. RVR resolved. - TTE as noted above - patient initially started on metoprolol which was increased to 25 mg PO BID with not much effect. Slight improvement with addition of diltiazem. Ideally would have added additional agents, however patient requesting discharge home and rate was generally between 90-100 and her symptoms had improved. Discharged on metorpolol 25 mg BID and 120mg of diltiazem daily. - CHADS-VASC of 3. Started apixaban 5 mg PO BID. Asked to follow up with PMD if this medication is too expensive to initiate warfarin. 3. HTN, chronic - home losartan reduced to 25 mg from 100 mg to allow for additional rate control of afib. 4. Asthma, mild intermittent, chronic - patient states history of asthma. No wheezing or evidence of exacerbation during her admission. DIspo: discharged home. Exam Vital Signs (past 8 hours): - 06/03/20 08:00 06/03/20 08:23 06/03/20 08:24 Temperature 98.9 F Pulse Rate 71 71 71 Respiratory Rate 19 Blood Pressure 107/69 107/69 107/69 Pulse Oximetry 93 06/03/20 09:12 06/03/20 09:13 06/03/20 12:00 Temperature 98.4 F Pulse Rate 105 H 89 Respiratory Rate 18 Blood Pressure 127/72 134/77 Pulse Oximetry 94 93 Oxygen Delivery Method Room Air Oxygen Flow Rate 0 Narrative Exam Narrative: GENERAL APPEARANCE: Well developed, well nourished, elderly female in no acute distress. SKIN: Inspection of the skin reveals no rashes, ulcerations or petechiae. HEENT: Normocephalic atraumatic, extraocular muscles are intact, oropharynx is clear and mucous membranes are moist, neck is supple without adenopathy NECK: Supple and symmetric. There was no thyroid enlargement, and no tenderness. No JVD. CHEST: Normal AP diameter and normal contour without any kyphoscoliosis. LUNGS: Mild bibasilar rhonchi, right greater than left, no wheezing. CARDIOVASCULAR: Mildly tachycardic, irregularly irregular rhythm without murmurs, rubs, or gallops Peripheral pulses were 2+ and symmetric. ABDOMEN: Soft and nontender with normal bowel sounds. No ascites was noted. MUSCULOSKELETAL: There was no tenderness or effusions noted. Muscle strength and tone were normal. EXTREMITIES: No cyanosis, clubbing. Bilateral LE 1+ pitting edema. NEUROLOGIC: Alert and oriented x 3. Normal affect. Gait was normal. Strength is +5/5 in the Upper Extremities and Lower Extremities Bilaterally. Sensation to touch was normal. Objective Labs Result Diagrams: 06/03/20 05:25 06/03/20 05:25 Labs: Laboratory Results - last 24 hr 06/02/20 06/02/20 06/02/20 13:43 13:43 13:43 WBC 8.7 RBC 4.60 Hgb 13.2 Hct 39.6 MCV 86.2 MCH 28.6 MCHC 33.2 RDW 14.6 Plt Count 232 Neut % (Auto) 65.4 Lymph % (Auto) 23.5 L [place] % (Auto) 8.4 Eos % (Auto) 2.0 Baso % (Auto) 0.7 Neut # (Auto) 5700 Lymph # (Auto) 2000 [place] # (Auto) 700 Eos # (Auto) 200 Baso # (Auto) 100 PT 11.2 INR 1.0 APTT 31 Sodium 138 Potassium 3.8 Chloride 107 Carbon Dioxide 24 BUN 15 Creatinine 0.77 Estimated GFR > 60.0 BUN/Creatinine Ratio 19.5 Glucose 110 Hemoglobin A1c Calcium 9.0 Magnesium Total Bilirubin 0.8 Conjugated Bilirubin Unconjugated Bilirubin AST 24 ALT 17 Alkaline Phosphatase 85 Total Creatine Kinase CK-MB (CK-2) CK-MB (CK-2) Rel Index Troponin I NT-Pro-B Natriuret Pep 850 H Total Protein 7.0 Albumin 4.1 Globulin 2.9 Albumin/Globulin Ratio 1.4 Triglycerides Cholesterol LDL Cholesterol, Calc HDL Cholesterol Lipase 85 TSH SARS-CoV-2 (PCR) 06/02/20 06/02/20 06/02/20 13:43 13:43 13:43 WBC RBC Hgb Hct MCV MCH MCHC RDW Plt Count Neut % (Auto) Lymph % (Auto) [place] % (Auto) Eos % (Auto) Baso % (Auto) Neut # (Auto) Lymph # (Auto) [place] # (Auto) Eos # (Auto) Baso # (Auto) PT INR APTT Sodium Potassium Chloride Carbon Dioxide BUN Creatinine Estimated GFR BUN/Creatinine Ratio Glucose Hemoglobin A1c Calcium Magnesium 2.1 Total Bilirubin Conjugated Bilirubin Unconjugated Bilirubin AST ALT Alkaline Phosphatase Total Creatine Kinase 75 CK-MB (CK-2) TNP CK-MB (CK-2) Rel Index TNP Troponin I < 0.012 NT-Pro-B Natriuret Pep Total Protein Albumin Globulin Albumin/Globulin Ratio Triglycerides Cholesterol LDL Cholesterol, Calc HDL Cholesterol Lipase TSH SARS-CoV-2 (PCR) Negative 06/02/20 06/02/20 06/03/20 15:10 21:43 05:25 WBC 8.2 RBC 4.34 Hgb 12.5 Hct 37.5 MCV 86.4 MCH 28.7 MCHC 33.2 RDW 14.4 Plt Count 219 Neut % (Auto) 58.1 Lymph % (Auto) 30.4 [place] % (Auto) 8.1 Eos % (Auto) 2.7 Baso % (Auto) 0.7 Neut # (Auto) 4700 Lymph # (Auto) 2500 [place] # (Auto) 700 Eos # (Auto) 200 Baso # (Auto) 100 PT INR APTT Sodium 138 Potassium 4.6 Chloride 104 Carbon Dioxide 34 H BUN 17 Creatinine 0.87 Estimated GFR > 60.0 BUN/Creatinine Ratio 19.5 Glucose 91 Hemoglobin A1c Calcium 9.0 Magnesium Total Bilirubin Conjugated Bilirubin Unconjugated Bilirubin AST ALT Alkaline Phosphatase Total Creatine Kinase CK-MB (CK-2) CK-MB (CK-2) Rel Index Troponin I NT-Pro-B Natriuret Pep Total Protein Albumin Globulin Albumin/Globulin Ratio Triglycerides Cholesterol LDL Cholesterol, Calc HDL Cholesterol Lipase TSH SARS-CoV-2 (PCR) Negative 06/03/20 06/03/20 06/03/20 05:25 05:25 05:25 WBC RBC Hgb Hct MCV MCH MCHC RDW Plt Count Neut % (Auto) Lymph % (Auto) [place] % (Auto) Eos % (Auto) Baso % (Auto) Neut # (Auto) Lymph # (Auto) [place] # (Auto) Eos # (Auto) Baso # (Auto) PT INR APTT Sodium 137 Potassium 4.0 Chloride 103 Carbon Dioxide 29 BUN 17 Creatinine 0.78 Estimated GFR > 60.0 BUN/Creatinine Ratio 21.8 Glucose 106 Hemoglobin A1c 5.3 Calcium 8.9 Magnesium 2.0 Total Bilirubin 0.8 Conjugated Bilirubin 0.0 Unconjugated Bilirubin 0.8 AST 19 ALT 14 Alkaline Phosphatase 78 Total Creatine Kinase CK-MB (CK-2) CK-MB (CK-2) Rel Index Troponin I NT-Pro-B Natriuret Pep Total Protein 6.5 Albumin 3.7 Globulin 2.8 Albumin/Globulin Ratio 1.3 Triglycerides 86 Cholesterol 227 H LDL Cholesterol, Calc 133 H HDL Cholesterol 77 H Lipase TSH 4.23 SARS-CoV-2 (PCR) [facility] Medical History (Updated 06/02/20 @ 14:34 by Matt Gilliland DO) Asthma Hypertension Lower extremity edema Surgical History (Updated 06/02/20 @ 16:50 by Erik Melton DO) H/O: hysterectomy Family History (Updated 06/02/20 @ 16:51 by Erik Melton DO) Sister Congestive heart failure Mother Congestive heart failure Social History marital status: household members: spouse lives independently: Yes Smoking Status: Former smoker alcohol intake: former Discharge Plan Discharge Plan Patient Disposition: Home Provider Discharge Comment: You were admitted to the hospital with atrial fibrillation. You improved with medications. Your heart rate is still a bit high but this may improve over time with these medications. Please follow up with a PCP as soon as possible. If apixaban is too expensive with your insurance, I would recommend you follow up with a PCP to start warfarin as soon as possible. Your losartan was lowered to allow for the medications to lower your heart rate. Discharge orders & Medications Prescriptions: New diltiazem HCl 120 mg capsule,extended release 24hr 120 mg PO DAILY 30 Days Qty: 30 RF: 0 metoprolol succinate 25 mg tablet extended release 24 hr 25 mg PO BID 30 Days Qty: 60 RF: 0 losartan 25 mg tablet 25 mg PO DAILY 30 Days Qty: 30 RF: 0 apixaban 5 mg tablet 5 mg PO BID 30 Days Qty: 60 RF: 0 Continued Conjugated Estrogens (PREMARIN) 1.25 mg PO QDAY Qty: 0 RF: 0 VITAMIN D (Vitamin D3) 1,000 unit PO QDAY Qty: 0 RF: 0 Atrovent HFA 12.9 GM HFA aerosol inhaler 2 puff inhalation PRN PRN (Reason: Shortness Of Breath) Qty: 0 RF: 0 omeprazole 20 mg Tablet,Delayed Release (Dr/Ec) 20 mg PO DAILY RF: 0 Women's 50 Plus Multivitamin 1 tab PO DAILY RF: 0 Changed furosemide 20 MG tablet 20 mg PO DAILY 30 Days Qty: 30 RF: 0 Discontinued losartan 100 mg tablet 100 mg PO DAILY RF: 0 Follow up/Referrals: Doctor Youssef MD [Primary Care Provider] - Diet/Activity/Treatments Diet: Diet as Tolerated Activity: As tolerated Visit Report/Discharge Packet Instructions: Atrial Fibrillation, DI for Atrial Fibrillation, Metoprolol, Diltiazem, Apixaban Discharge Data Primary Care Provider: Doctor Domonique Attending Provider: Erik Melton VTE Deep Vein Thrombosis/Pulmonary Embolism Present on Admission: No MIPS - Admit Advanced Care Plan / Current Medications Measures: #47 ? Advanced Care Plan Clinician documentation instruction: document at admission. [x] I confirmed that the patient's Advance Care Plan is present, code status is documented, or surrogate decision maker is listed in the patient?s medical record. [SATISFIES [facility] PERFORMANCE] If Yes, Stop Here [] The patient?s Advance Care plan is not present because: (select) [MIPS PERFORMANCE EXCEPTION/EXCLUSION] [] I confirmed today that the patient does not wish or was not able to name a surrogate decision maker or provide an Advance Care Plan. [] Hospice care is currently being provided or has been provided this calendar year [] I did NOT confirm today the presence of an Advance Care Plan or surrogate decision maker documented within the patient's medical record. [DOES NOT SATISFY MIPS PERFORMANCE] #130 - Documentation of Current Medications in the Medical Record Clinician documentation instruction: use macro the first time you see a patient. [x] I have utilized all available immediate resources to obtain, update, or review the patient?s current medications. [SATISFIES MIPS PERFORMANCE] If Yes, Stop Here [] The patient is not eligible for medication reconciliation; the patient is in an emergent medical situation where delaying treatment would jeopardize the patient?s health. [MIPS PERFORMANCE EXCEPTION/EXCLUSION] [] I did NOT confirm, update or review the patient's current list of medications today. [DOES NOT SATISFY MIPS PERFORMANCE] MIPS - CL Central Venous Catheter Placement Measure: #76 ? Prevention of Central Venous Catheter (CVC) ? Related Bloodstream Infection Clinician documentation instruction: use macro every time you place a central line. [] All elements of Maximal Sterile Barrier Technique, including hand hygiene, skin prep, and sterile ultrasound technique (if used) were followed. [SATISFIES MIPS PERFORMANCE] If Yes, Stop Here [] If ?No?, the medical reason all elements were NOT used for medical reason [] (ex. emergent condition). [] Maximal Sterile Barrier Technique was not followed, no reason provided [DOES NOT SATISFY MIPS PERFORMANCE] MIPS - DC Heart Failure Measures: #5 - Heart Failure (HF): Angiotensin-Converting Enzyme (PAUL) Inhibitor or Angiotensin Receptor Brittney (ARB) Therapy for Left Ventricular Systolic Dysfunction (LVSD) and #8 - Heart Failure (HF): Beta-Brittney Therapy for Left Ventricular Systolic Dysfunction (LVSD) Clinician documentation instruction: use macro at every CHF discharge. [N] The patient has current or prior documentation of left ventricular ejection fraction (LVEF) less than 40%, or moderate or severely depressed left ventricular systolic function. Answer both: [SATISFIES MIPS PERFORMANCE] [] The patient was prescribed or already taking an Angiotensin-Converting Enzyme (PAUL) Inhibitor, or Angiotensin Receptor Brittney (ARB). [] The patient was prescribed or already taking a beta-brittney. If Yes to Both, Stop Here [] Patient not prescribed/taking: [MIPS PERFORMANCE EXCEPTION/EXCLUSION] [] PAUL or ARB for medical/patient/system reason(s) including [] (ex. allergy, intolerance, contraindication) [] Beta-brittney for medical/patient/system reason(s) including [] (ex. allergy, intolerance, contraindication) [] Patient not prescribed/taking: [DOES NOT SATISFY MIPS PERFORMANCE] [] PAUL or ARB, no reason given [] Beta-brittney, no reason given
--- NOTE | 2020-06-03 14:28 | PC.NURSE ---
Discharge education given to pt and spouse, discussed- new medications and med safety, f/u appts, worsening symptoms, s/s of stroke, diet, activity and reasons to seek medical attention. Pt and spouse expressed understanding, all questions answered. IV removed, intact, tolerated well. Tele removed, SKI BASE TRIMMER informed. Pt dressed and packed all belongings independently. Left via w/c assisted by PRODUCTION MAINTENANCE TECHNICIAN, accompanied by spouse.
== END 2020-06-03 14:30 | disposition home or self-care (01) ==
LOC: ED 14:34 → AC 15:28
PROVIDERS: Nurse Practitioner Family; Admitting Provider Internal Medicine; Emergency Provider Emergency Medicine; Referring Provider Emergency Medicine; Visit Provider Internal Medicine
DX: I11.0 Hypertensive heart disease with heart failure (principal); I50.9 Heart failure, unspecified; I48.91 Unspecified atrial fibrillation; J45.20 Mild intermittent asthma, uncomplicated; Z20.822 Contact with and (suspected) exposure to COVID-19
CPT/HCPCS: 36415; 71045; 80048; 80053; 80061; 80076; 82550; 83036; 83690; 83735; 83880; 84443; 84484; 85025; 85610; 85730; 87635; 93005; 93306; 96374; 96375; 99284; C9803; G0378; J1940; J2405